=== PATIENT | female | born 1930 ===

== ENCOUNTER 2017-10-04 13:52 | Emergency (ER) | payer OTHER ==
[~2017-10-04] VITALS: Ht 160 cm; Wt 88.0 kg
[2017-10-04] MEDS ORDERED: VASOTEC10 MG (14:10)
[2017-10-04] MEDS ORDERED: LANTUS SOL100 UNIT/1 (14:11)
[2017-10-04] MEDS ORDERED: PRESERVISION A1 EAC1 (14:12)
[2017-10-04] MEDS ORDERED: ARICEPT10 MG (14:12)
[2017-10-04] MEDS ORDERED: ZOCOR40 MG (14:12)
[2017-10-04] MEDS ORDERED: NEURONTIN600 MG (14:13)
[2017-10-04] MEDS ORDERED: BUTALB-ACETAMI1 EACH PO (16:58)
== END 2017-10-04 20:39 | disposition home or self-care (01) ==
LOC: ER 13:52
DX: R51 Headache (principal)